=== PATIENT | female | born 1950 ===

== ENCOUNTER 2018-08-23 12:05 | Emergency (ER) | payer MEDICARE ==
[2018-08-23 12:37] VITALS: O2SAT 96; BMI 40.6
--- NOTE | 2018-08-23 13:25 | ED PDOC ---
Arrival/HPI - General Chief Complaint: Abnormal Skin Integrity Time Seen by Provider: 08/23/18 12:35 Historian: Patient - History of Present Illness Narrative History of Present Illness (Text): 08/23/18 13:05 67 y/o F, with past medical history of asthma, hyperthyroidism and borderline diabetes, presents to the Emergency Department for evaluation of rash to bilateral upper thighs since 3 days. Patient states unchanged symptoms since onset associated with itchiness but denies any pain to the area. Patient informs history of purulent rash to the umbilicus in December for which she was on antibiotics for three months. Patient worries that discharge from the umbilicus may have washed down her thighs leading to the symptoms. Patient denies any recent changes to diet, clothing or cosmetics. Patient denies any application of cream or taking oral medications for the symptoms. Patient informs intermittent subjective fever for past week but reports her last bowel movement was 1 week ago. Patient denies any nausea, vomiting, diarrhea, abdominal pain, chest pain, shortness of breath, neck pain, back pain, headache, dizziness or any other complaints. PMD: Dr. Rondon Time/Duration: < week (3 days) Symptom Onset: Gradual Symptom Course: Unchanged Activities at Onset: Light Context: Home Past Medical History - Provider Review Nursing Documentation Reviewed: Yes - Cardiac Hx Cardiac Disorders: Yes Hx Hypertension: Yes - Pulmonary Hx Asthma: Yes - Musculoskeletal/Rheumatological Hx Arthritis: Yes - Psychiatric Hx Substance Use: No - Surgical History Hx Cholecystectomy: Yes - Anesthesia Hx Anesthesia: Yes Hx Anesthesia Reactions: No - Suicidal Assessment Feels Threatened In Home Enviroment: No Family/Social History - Physician Review Nursing Documentation Reviewed: Yes Family/Social History: No Known Family HX Smoking Status: Never Smoked Hx Alcohol Use: No Hx Substance Use: No Allergies/Home Meds Allergies/Adverse Reactions: Allergies No Known Allergies Allergy (Verified 08/23/18 12:40) Home Medications: Home Meds Medication Instructions Recorded Confirmed Losartan/Hydrochlorothiazide 1 tab PO DAILY 09/12/16 08/23/18 [Losartan-Hctz 100-25 mg Tab] Levothyroxine [Levoxyl] 0.025 mg PO DAILY 08/23/18 08/23/18 Lubiprostone [Amitiza] 24 mcg PO BID 08/23/18 08/23/18 RX: Omeprazole 20 mg PO DAILY 08/23/18 08/23/18 amLODIPine [Norvasc] 10 mg PO HS 08/23/18 08/23/18 metFORMIN [glucOPHAGE] 500 mg PO DAILY 08/23/18 08/23/18 Review of Systems - Physician Review All systems were reviewed & negative as marked: Yes - Review of Systems Constitutional: Fevers Respiratory: absent: SOB Cardiovascular: absent: Chest Pain Gastrointestinal: absent: Abdominal Pain, Diarrhea, Nausea, Vomiting Genitourinary Female: absent: Other Musculoskeletal: absent: Back Pain Skin: Rash Neurological: absent: Headache, Dizziness Physical Exam Vital Signs Reviewed: Yes Vital Signs Temp Pulse Resp BP Pulse Ox 08/23/18 12:35 98.6 F 80 18 170/93 H 96 Temperature: Afebrile Blood Pressure: Hypertensive Pulse: Regular Respiratory Rate: Normal Appearance: Positive for: Well-Appearing, Non-Toxic, Comfortable Pain Distress: None Mental Status: Positive for: Alert and Oriented X 3 - Systems Exam Head: Present: Atraumatic, Normocephalic Pupils: Present: PERRL Extroacular Muscles: Present: EOMI Conjunctiva: Present: Normal Mouth: Present: Moist Mucous Membranes Neck: Present: Normal Range of Motion Respiratory/Chest: Present: Good Air Exchange, Wheezes (Minor wheeze in the anterior field bilaterally.). No: Respiratory Distress, Accessory Muscle Use Cardiovascular: Present: Regular Rate and Rhythm, Normal S1, S2. No: Murmurs Abdomen: No: Tenderness, Distention, Peritoneal Signs Back: Present: Normal Inspection Upper Extremity: Present: Normal Inspection. No: Cyanosis, Edema Lower Extremity: Present: Normal Inspection. No: Edema Neurological: Present: GCS=15, CN II-XII Intact, Speech Normal Skin: Present: Warm, Dry, Rashes (non blanching papules noted to the upper thighs bilaterall. Pruritic in nature. ), Normal Color, Other (Healed lesion noted to umbilical region. No purulent discharge noted. No fluctuation or endurance noted. ) Psychiatric: Present: Alert, Oriented x 3, Normal Insight, Normal Concentration Medical Decision Making ED Course and Treatment: 08/23/18 13:03 Impression: 67 year old female presents to the Emergency Department for evaluation of rash to bilateral thighs. Differential Diagnosis included but are not limited to: Cellulitis Allergic reaction to medication Sepsis Abscess Plan: -- Labs -- Chest X-ray -- Benadryl -- Prednisone -- Urinalysis -- Reassess and disposition Progress Notes: 08/23/18 15:17 Labs reviewed, which shows no leukocytosis. Chemistry is within normal range. Bacteria present in urine but patient is asymptomatic and will postpone treatment for UTI. She is still itching but unable to identify any triggers or allergens. Patient is suggested to continue conservative treatment at home and follow up with her PMD for further evaluation. Prescriptions are provided and patient is stable for discharge. - RAD Interpretation Narrative RAD Interpretations (Text): 08/23/18 14:23 Chest X-ray reviewed by radiologist, shows: FINDINGS: LUNGS: No active pulmonary disease. PLEURA: No significant pleural effusion identified, no pneumothorax apparent. CARDIOVASCULAR: Normal. OSSEOUS STRUCTURES: No significant abnormalities. VISUALIZED UPPER ABDOMEN: Normal. OTHER FINDINGS: None. IMPRESSION: No active disease. Radiology Orders: 08/23/18 13:03 CHEST PORTABLE [RAD] Stat Medical Secretary Receptionist: Radiologist - Medication Orders Current Medication Orders: Diphenhydramine HCl (Benadryl) 50 mg PO STAT STA Stop: 08/23/18 13:04 Prednisone (Prednisone Tab) 60 mg PO STAT ONE Stop: 08/23/18 13:04 - Scribe Statement The provider has reviewed the documentation as recorded by the Scribe Anai Betancur. All medical record entries made by the Scribe were at my direction and personally dictated by me. I have reviewed the chart and agree that the record accurately reflects my personal performance of the history, physical exam, medical decision making, and the department course for this patient. I have also personally directed, reviewed, and agree with the discharge instructions and disposition. Disposition/Present on Arrival - Present on Arrival Any Indicators Present on Arrival: No History of DVT/PE: No History of Uncontrolled Diabetes: No Urinary Catheter: No History of Decub. Ulcer: No History Surgical Site Infection Following: None - Disposition Have Diagnosis and Disposition been Completed?: Yes Diagnosis: Allergic reaction Disposition: HOME/ ROUTINE Disposition Time: 15:11 Patient Plan: Discharge Condition: STABLE Discharge Instructions (ExitCare): Skin Rash (DC), Allergy Skin Testing Print Language: BERMUDIAN Prescriptions: Methylprednisolone [Medrol Dose Pack (21 tabs)] 4 mg PO DAILY #21 mg Referrals: Viviane Rondon DO [Primary Care Provider] - Follow up with primary Forms: [facility] (Wolof)
[2018-08-23 13:33] LABS: BASO # 0.03 K/mm3 (0.0-2.0); BASO % 0.4 % (0.0-3.0); EOS # 0.4 (0.0-0.7); EOS % 5.1 % (1.5-5.0); GRAN # 4.7 (1.4-6.5); GRAN % 58.9 % (50.0-68.0); HEMOGLOBIN 12.5 g/dL (12.0-16.0); LYMPH # 2.3 (1.2-3.4); LYMPH % 28.7 % (22.0-35.0); MEAN CELL VOLUME 82.7 fl (80.0-105.0); MEAN CORPUSCULAR HEMOGLOBIN 28.4 pg (25.0-35.0); MEAN CORPUSCULAR HGB CONC 34.3 g/dl (31.0-37.0); MONO # 0.6 (0.1-0.6); MONO % 6.9 % (1.0-6.0); RBC 4.4 10^6/uL (3.5-6.1); RED CELL DISTRIBUTION WIDTH 13.2 % (11.5-14.5)
--- NOTE | 2018-08-23 13:39 | RAD ---
Date of service: 08/23/2018 HISTORY: sob COMPARISON: No prior. FINDINGS: LUNGS: No active pulmonary disease. PLEURA: No significant pleural effusion identified, no pneumothorax apparent. CARDIOVASCULAR: Normal. OSSEOUS STRUCTURES: No significant abnormalities. VISUALIZED UPPER ABDOMEN: Normal. OTHER FINDINGS: None. IMPRESSION: No active disease.
[2018-08-23 13:45] LABS: ALB/GLOB RATIO 1.3 (1.1-1.8); ALBUMIN 4.3 g/dL (3.0-4.8); ALT/SGPT 24 U/L (7-56); AST/SGOT 25 U/L (14-36); BLOOD UREA NITROGEN 10 mg/dL (7-21); CALCIUM 9.3 mg/dL (8.4-10.5); GFR NON-AFRICAN AMERICAN > 60
[2018-08-23 14:21] LABS: PH,URINE 8.5 (4.7-8.0); URINE BILIRUBIN NEGATIVE (NEGATIVE); URINE BLOOD NEGATIVE (NEGATIVE); URINE GLUCOSE (UA) NEGATIVE (NEGATIVE); URINE LEUKOCYTE ESTERASE SMALL Leu/uL (NEGATIVE); URINE PROTEIN TRACE mg/dL (<30 mg/dL); URINE UROBILINOGEN 0.2 E.U./dL (<1 E.U./dL)
[2018-08-23 14:34] LABS: URINE APPEARANCE SL CLOUDY (CLEAR); URINE COLOR YELLOW (YELLOW)
[2018-08-23 15:04] LABS: URINE RBC 0 - 2 /hpf (0-2)
[2018-08-23 15:05] LABS: URINE BACTERIA MANY (NEG)
[2018-08-23 15:50] VITALS: BP 135/76; PULSE 78; RESP 17; TEMP 98
== END 2018-08-23 15:51 | disposition home or self-care (01) ==
LOC: ED 12:05
DX: T78.40XA Allergy, unspecified, initial encounter (principal); X58.XXXA Exposure to other specified factors, initial encounter; I10 Essential (primary) hypertension; R73.03 Prediabetes; E05.90 Thyrotoxicosis, unspecified without thyrotoxic crisis or storm